=== PATIENT | female | born 1990 | race African-American/Black ===

== ENCOUNTER 2024-07-14 06:52 | Inpatient (IN) | payer MEDICAID ==
[2024-07-12 11:07] LABS: Basophils # (auto) 0 10 ^3/uL (0-0.2); Eosinophils # (auto) 0 10 ^3/uL (0-0.8); Eosinophils % (auto) 0.4 % (0.0-7.0)
[2024-07-12 11:09] LABS: Albumin 4.1 g/dL (3.2-4.8); Anion Gap 10 (5-15); Basophils % (auto) 0.4 % (0.0-2.0); Bilirubin, Total 0.3 mg/dL (0.2-1.0); Calcium 9.5 mg/dL (8.7-10.4); Carbon Dioxide 23 mmol/L (20-31); Chloride 106 mmol/L (98-107); Glucose 82 mg/dL (74-106); Hematocrit 31.9 % (36.0-46.0); Hemoglobin 10.2 g/dL (12.2-16.2); Lymphocytes % (auto) 10.1 % (10.0-50.0); Mean Corpuscular Hemoglobin 23.9 pg (28.0-32.0); Mean Corpuscular Hgb Conc. 31.9 g/dL (32.0-36.0); Mean Corpuscular Volume 74.8 fL (80.0-100.0); Monocytes # (auto) 0.7 10 ^3/uL (0-1.3); Monocytes % (auto) 6.9 % (0.0-12.0); Neutrophils # (auto) 7.7 10 ^3/uL (1.6-8.6); Neutrophils % (auto) 82.2 % (37.0-80.0); Platelet Count (auto) 277 10^3/uL (140-450); Potassium 4.1 mmol/L (3.5-5.1); Red Blood Cells 4.26 10^6/uL (4.0-5.20); Red Cell Distribution Width 17.7 % (11.8-14.3); Sodium 139 mmol/L (136-145); Total Protein 7.2 g/dL (5.7-8.2); White Blood Cell 9.4 10^3/uL (4.4-10.8)
[2024-07-12 11:11] LABS: Alanine Aminotransferase 9 U/L (7-40); Alkaline Phosphatase 177 U/L (46-116); Aspartate Aminotransferase 11 U/L (13-40); BUN/Creatinine Ratio 8.3 (10.0-20.0); Blood Urea Nitrogen < 5 mg/dL (9-23)
[2024-07-12 11:18] LABS: Cannabinoid Screen, Urine Pos (NEGATIVE)
[2024-07-12 11:26] LABS: Amphetamine Screen, Urine Neg (NEGATIVE); Barbiturate Scree,Urine Neg (NEGATIVE); Benzodiazephine Screen, Urine Neg (NEGATIVE); Cocaine Screen, Urine Neg (NEGATIVE); Opiate Scree,Urine Neg (NEGATIVE); Phencyclidine Screen, Urine Neg (NEGATIVE)
[2024-07-12 11:29] LABS: INR 0.96 (0.9-1.15); Prothrombin Time 10.2 sec (9.3-11.8)
[2024-07-14] VITALS (8 sets, daily range): BP systolic 97–116; BP diastolic 61–77; PULSE 94–114; RESP 20; TEMP 97.7; O2SAT 95–100
[~2024-07-14] VITALS: Ht 167.6 cm; Wt 86.2 kg
[2024-07-14] MEDS: ceFAZolin 1GM/50ML 50 ML IV ONE (07:00)
[2024-07-14 07:53] LABS: Basophils # (auto) 0 10 ^3/uL (0-0.2); Basophils % (auto) 0.4 % (0.0-2.0); Eosinophils # (auto) 0 10 ^3/uL (0-0.8); Eosinophils % (auto) 0.3 % (0.0-7.0); Hematocrit 31.7 % (36.0-46.0); Hemoglobin 10.1 g/dL (12.2-16.2); Lymphocytes # (auto) 1.4 10 ^3/uL (0.4-5.4); Lymphocytes % (auto) 14.6 % (10.0-50.0); Mean Corpuscular Hemoglobin 23.9 pg (28.0-32.0); Mean Corpuscular Volume 74.5 fL (80.0-100.0); Monocytes # (auto) 0.6 10 ^3/uL (0-1.3); Monocytes % (auto) 6.3 % (0.0-12.0); Neutrophils # (auto) 7.4 10 ^3/uL (1.6-8.6); Neutrophils % (auto) 78.4 % (37.0-80.0); Nucleated Red Blood Cells % 0.2 %; Platelet Count (auto) 266 10^3/uL (140-450); Red Blood Cells 4.25 10^6/uL (4.0-5.20); Red Cell Distribution Width 17.5 % (11.8-14.3); White Blood Cell 9.4 10^3/uL (4.4-10.8)
[2024-07-14 07:56] LABS: Albumin 4.2 g/dL (3.2-4.8); Anion Gap 11 (5-15); BUN/Creatinine Ratio 9.4 (10.0-20.0); Calcium 9.6 mg/dL (8.7-10.4); Carbon Dioxide 23 mmol/L (20-31); Chloride 104 mmol/L (98-107); Glucose 84 mg/dL (74-106); Potassium 3.6 mmol/L (3.5-5.1); Sodium 138 mmol/L (136-145); Total Protein 7.3 g/dL (5.7-8.2)
[2024-07-14 07:57] LABS: Bilirubin, Total 0.3 mg/dL (0.2-1.0)
[2024-07-14 08:00] LABS: Alanine Aminotransferase < 9 U/L (7-40); Alkaline Phosphatase 183 U/L (46-116); Aspartate Aminotransferase 12 U/L (13-40); Blood Urea Nitrogen 6 mg/dL (9-23)
[2024-07-14 08:01] LABS: INR 0.95 (0.9-1.15); Partial Thromboplastin Time 29.2 SEC (24.5-34.5); Prothrombin Time 10.1 sec (9.3-11.8)
--- NOTE | 2024-07-14 08:02 | DVHPN2 ---
Visit Coding OBGYN Date of Service: Jul 14, 2024 Billing Provider: EDER SOLARES DO SOLUTIONS ENGINEER Common Visit Codes: [id number] INP/OBS CARE (HIGH) EDER SOLARES DO Jul 14, 2024 08:02
--- NOTE | 2024-07-14 08:15 | DVHHP ---
ADMIT DATE: 07/14/2024 CHIEF COMPLAINT: Uterine contractions HISTORY OF PRESENT ILLNESS: This is a 33-year-old -Filipino female. She is a 5, para 1. She has had 3 prior miscarriages. Her estimated due date is 07/22/2024 based on a 17 week ultrasound. Current gestational age of 38.6 weeks. The patient has had good care since the second trimester. She has a history of previous section, desires repeat without a trial of labor. Her is significant for mild anemia and marijuana use during . She presented with early labor symptoms and irregular contractions. Denies rupture of membranes or bleeding. PAST MEDICAL HISTORY: Anemia. PAST SURGICAL HISTORY: x1. MEDICATIONS: vitamins and iron sulfate. ALLERGIES: No known drug allergies. SOCIAL HISTORY: Denies any tobacco, or alcohol use. Endorses THC use FAMILY HISTORY: Negative and noncontributory. REVIEW OF SYSTEMS: A 14-point review of systems is negative as otherwise stated in the HPI. PHYSICAL EXAMINATION: VITAL SIGNS: Stable. GENERAL: Alert, in no acute distress, pleasant. HEENT: Normocephalic, atraumatic. EOMI. NECK: Supple, with no palpable thyromegaly. ABDOMEN: Gravid, soft, nontender. CARDIOVASCULAR: Regular rate and rhythm. PULMONARY: Clear to auscultation bilaterally. EXTREMITIES: Without cyanosis, deformity or edema. PELVIC: Shows normal external female genitalia. Cervical exam 2cm dilated. heart rate baseline is 130 bpm with moderate variability, no decelerations, category 1. OTHER FINDINGS: The patient's blood type is AB positive, rubella immune, HIV negative, hepatitis B negative, RPR negative. ASSESSMENT: * Term intrauterine at 38.6 weeks,early labor * Previous section, desires repeat. PLAN: The patient will be admitted for repeat section without a trial of labor. She has been consented for surgery and anesthesia and possible blood transfusion. The risks, benefits and alternatives to surgery have been discussed. Risks of scar, pain, bleeding, infection, injury to bowel, bladder, adjacent organs, all reviewed with the patient. Patient desires to proceed as planned. DO HARIS Richardson TID: [id number] RECEIPT: [id number] MTDD
[2024-07-14 08:37] LABS: Urine Bacteria FEW /hpf (None Seen); Urine Blood Negative /uL (Negative); Urine Clarity Turbid (Clear); Urine Color Yellow (Yellow); Urine Mucus FEW (None Seen); Urine Protein, UAD TRACE (Negative); Urine Specific Gravity 1.024 (1.001-1.035); Urine Squamous Epithelial Cell MOD /hpf (<5); Urine Urobilinogen Normal (Negative); Urine WBC 3 /HPF (0-5)
[2024-07-14 08:38] LABS: Cannabinoid Screen, Urine Pos (NEGATIVE)
[2024-07-14 08:39] LABS: Amphetamine Screen, Urine Neg (NEGATIVE); Barbiturate Scree,Urine Neg (NEGATIVE); Benzodiazephine Screen, Urine Neg (NEGATIVE); Cocaine Screen, Urine Neg (NEGATIVE); Opiate Scree,Urine Neg (NEGATIVE); Phencyclidine Screen, Urine Neg (NEGATIVE)
[2024-07-14] MEDS: LACTATED RINGER'S 1,000 ML IV SCH (10:19)
[2024-07-14] MEDS: LACTATED RINGER'S 1,000 ML IV ONE (10:19)
[2024-07-14] MEDS: ceFAZolin 2 GM/D5W50ml 50 ML IV ONE (12:14)
[2024-07-14] MEDS ORDERED: MIDAZOLAM HCL 2MG/2ML 2ml VIAL (1mg/ml) ONE (13:08)
[2024-07-14] MEDS ORDERED: MORPHINE SULF PF 5 MG/10 ML VIAL ONE (13:08)
[2024-07-14] MEDS ORDERED: fentaNYL CITRATE 100 MCG/2 ML VL ONE (13:08)
[2024-07-14] MEDS: TETRACAINE 1% INJ 2 ML VIAL IJ ONE (13:10)
[2024-07-14] MEDS ORDERED: oxyTOCIN 10 UNIT/ML 10ML VIAL ONE (14:23)
--- NOTE | 2024-07-14 14:30 | DVHPN2 ---
Visit Coding OBGYN Date of Service: Jul 14, 2024 Billing Provider: EDER SOLARES DO SENIOR MAINTENANCE MACHINIST Common Visit Codes: PROCEDURE ONLY SENIOR MAINTENANCE MACHINIST Procedure Codes: [id number] OB CARE, DEL EDER SOLARES DO Jul 14, 2024 14:30
[2024-07-14] MEDS ORDERED: DexAMETHasone SOD PHOS 10MG/1ML VIAL INJ IV PRN (14:45)
[2024-07-14] MEDS: LACT. RINGERS/OXYTOCIN 20UNITS 1,000 ML IV ONE (14:45)
[2024-07-14] MEDS ORDERED: ceFAZolin 1GM/50ML 50 ML IV ONE (14:45)
[2024-07-14] MEDS: GUM (CHEWING) 1 GUM CHEW CHEW ONE (14:45)
[2024-07-14] MEDS ORDERED: hydrALAZINE HCL 20 MG/ML VL IV PRN (14:45)
[2024-07-14] MEDS ORDERED: ONDANSETRON HCL 4 MG/2 ML VIAL IV PRN (14:45)
[2024-07-14] MEDS ORDERED: HYDROmorphone HCL 2 MG/ML VL/or syr IV PRN ×2 (14:45)
[2024-07-14] MEDS ORDERED: ePHEDrine SULFATE 50 MG/ML AMP IV PRN (14:45)
[2024-07-14] MEDS ORDERED: MIDAZOLAM HCL 2MG/2ML 2ml VIAL (1mg/ml) IV PRN (14:45)
[2024-07-14] MEDS ORDERED: diphenhdrAMINE HCL 50 MG/1 ML VL IV PRN (14:45)
--- NOTE | 2024-07-14 14:54 | DVHOP ---
DATE OF SURGERY: 07/14/2024 PREOPERATIVE DIAGNOSES: * Term intrauterine , 38 weeks and 6 days. * Previous section, desires repeat. * Early labor. FINAL DIAGNOSES: * Term intrauterine , 38 weeks and 6 days. * Previous section, desires repeat. * Early labor. PROCEDURE PERFORMED: Repeat low transverse section via Pfannenstiel skin incision. SURGEON: Cortez Muro DO. PROJECT CONTROLS SCHEDULER: lab technician. TYPE OF ANESTHESIA: Spinal. ANESTHESIOLOGIST: Horace Arcos MD. DESCRIPTION OF FINDINGS: Delivery of a liveborn male , cephalic presentation, clear amniotic fluid, weight 3020 grams (6 pounds 11 ounces). Normal uterus, normal fallopian tubes, ovaries and placenta. Two-layer uterine closure. TECHNICAL PROCEDURE: After informed consent was obtained, the patient was taken to the operating room where her spinal anesthesia was found to be adequate. She was placed in a supine position with a slight leftward tilt. She was sterilely prepped and draped in the usual sterile fashion. A Pfannenstiel skin incision was made through the prior scar. The incision was carried down sharply to the underlying layer of fascia and peritoneum. Entry into the peritoneal cavity was performed sharply. The peritoneal incision was extended superiorly and inferiorly with good visualization of the bladder and underlying organs. The peritoneal incision was stretched laterally. The Indra O retractor was placed into the incision. The vesicouterine peritoneum was dissected off the lower uterine segment and a bladder flap created digitally. Using a second scalpel, the lower uterine segment was incised in a low transverse fashion and the incision extended laterally. The amniotic fluid membranes were ruptured. The fluid was clear. The baby was then delivered atraumatically. There was a nuchal cord x1. After delivery of the , the nose and mouth were suctioned. The cord was clamped and cut and the infant handed off to waiting pediatric team. Cord blood was obtained. The placenta was then manually removed. The uterus was exteriorized and cleared of all clots and debris using moist laparotomy sponges. The uterine incision was repaired with #1 PDS in continuous running locking fashion. A second layer was used to better approximate and to obtain hemostasis. The uterus was returned to the abdomen. The cul-de-sac and pericolic gutters were cleared of all clots and debris. The abdomen was irrigated with sterile water. Hemostasis was confirmed. All laps and instrumentations were removed from the patient's abdomen. The peritoneum and rectus muscles were approximated in the midline in interrupted fashion using a 2-0 PDS. Next, the rectus fascia was closed with a Stratafix #1 in continuous running fashion with good tissue approximation. The subcutaneous tissue was approximated using 2-0 plain gut and the skin closed in subcuticular fashion using 3-0 Monocryl Stratafix in subcuticular fashion. A thin layer of Dermabond was placed over the incision followed by sterile silk dressing. The patient tolerated the procedure well. Sponge, lap and needle counts were correct x4. INTRAOPERATIVE COMPLICATIONS: None. ESTIMATED BLOOD LOSS: 600 mL. POSTOPERATIVE CONDITION: stable. SPECIMENS: Cord blood and placenta. MEDICATIONS: The patient received 2 grams of Ancef prior to skin incision. DO LAURA Richardson/MARA TID: [id number] RECEIPT: [id number]
[2024-07-14] MEDS: ceFAZolin 1GM/50ML 50 ML IV SCH (20:37)
[2024-07-14] MEDS: DOCUSATE SOD 100 MG CAP PO SCH (22:00)
[2024-07-15] VITALS (17 sets, daily range): BP systolic 102–133; BP diastolic 52–89; PULSE 77–127; RESP 17–18; TEMP 97.6–98.4; O2SAT 96–100
[2024-07-15] MEDS: ACETAMINOPHEN IV 1000 MG/100ML (10MG/ML) IV PRN (03:45)
[2024-07-15 05:21] LABS: Eosinophils # (auto) 0 10 ^3/uL (0-0.8); Eosinophils % (auto) 0.3 % (0.0-7.0); Hematocrit 24.6 % (36.0-46.0); Hemoglobin 8.1 g/dL (12.2-16.2)
[2024-07-15 05:24] LABS: Basophils # (auto) 0 10 ^3/uL (0-0.2); Basophils % (auto) 0.3 % (0.0-2.0); Lymphocytes # (auto) 1.4 10 ^3/uL (0.4-5.4); Lymphocytes % (auto) 12.1 % (10.0-50.0); Mean Corpuscular Hemoglobin 24.5 pg (28.0-32.0); Mean Corpuscular Volume 74.1 fL (80.0-100.0); Monocytes # (auto) 0.8 10 ^3/uL (0-1.3); Monocytes % (auto) 7.2 % (0.0-12.0); Neutrophils # (auto) 9.2 10 ^3/uL (1.6-8.6); Neutrophils % (auto) 80.1 % (37.0-80.0); Platelet Count (auto) 213 10^3/uL (140-450); Red Blood Cells 3.32 10^6/uL (4.0-5.20); White Blood Cell 11.5 10^3/uL (4.4-10.8)
[2024-07-15] MEDS: IBUPROFEN 600 MG TAB PO SCH (05:43)
[2024-07-15] MEDS ORDERED: HYDROcodone-ACET 5/325MG TAB PO PRN (06:00)
--- NOTE | 2024-07-15 06:56 | DVHPN2 ---
Progress Note Date Seen: Jul 15, 2024 Subjective POD#1 s/p R C/S S: Doing well. Lochia mild. Pain controlled. + Flatus vital signs Vital Sign Date Time Temp Pulse Resp B/P (MAP) Pulse Ox O2 Delivery O2 Flow Rate FiO2 07/15/24 05:00 87 100 07/14/24 19:00 Room Air 07/14/24 15:47 0.0 07/14/24 15:20 20 07/14/24 15:20 97.7 105/71 (82) 97.7 Total Intake and Output 07/14/24 07/14/24 07/15/24 15:00 23:00 07:00 Output Total 650 ml 325 ml Balance -650 ml -325 ml medications Current Medications Medications Dose Ordered Sig/Diana Route Start Time Stop Time Status Last Admin Dose Admin Lactated Ringer's 1,000 ml @ 125 mls/hr Q8H IV 07/14/24 07:00 07/14/24 20:37 125 MLS/HR Diphenhydramine HCl 25 mg Q4HP PRN IV 07/14/24 14:45 Ondansetron HCl 4 mg Q4HP PRN IV 07/14/24 14:45 Acetaminophen 1,000 mg [id number] PRN IV 07/14/24 14:45 07/15/24 14:44 07/15/24 03:45 1,000 MG Hydromorphone HCl 1 mg Q4HP PRN IV 07/14/24 14:45 Docusate Sodium 200 mg HS PO 07/14/24 22:00 Dimethicone 80 mg QID PRN PO 07/14/24 14:45 Ibuprofen 600 mg Q6HR PO 07/15/24 06:00 07/15/24 05:43 600 MG Acetaminophen/ Hydrocodone Bitart 1 tab Q4HPRN PRN PO 07/15/24 06:00 Acetaminophen/ Hydrocodone Bitart 2 tab Q4HPRN PRN PO 07/15/24 06:00 Cefazolin Sodium 50 ml @ 100 mls/hr Q8HR IV 07/14/24 20:00 07/15/24 14:00 07/15/24 04:29 100 MLS/HR laboratory and microbiology Laboratory Tests 07/15/24 04:56 07/14/24 07:17 Test 07/14/24 07:17 Range/Units Serum Glucose 84 74-106 mg/dL Objective O: AFVSS Chest: heart and lung sounds normal. Abd soft, non-tender, fundus firm, BS, no rebound or guarding, Incision - dressing and incision clean, dry, intact Ext Neg Homans, Non-tender, edema Lochia - minimal Labs Reviewed Assessment/Plan POD#1 s/p R C/Section doing well Precipitous drop in H/H Plan: Continue supportive care IV Iron Rx Pain control. Plan discussed with: Patient Visit Coding OBGYN Date of Service: Jul 15, 2024 Billing Provider: EDER SOLARES DO BODY MAN Common Visit Codes: [id number] INP/OBS CARE(MOD) EDER SOLARES DO Jul 15, 2024 06:55
[2024-07-15] MEDS: IRON SUCROSE COMPLEX 110 ML IV SCH (07:58)
[2024-07-15] MEDS ORDERED: BISACODYL 10 MG RECT SUPP PR PRN (09:30)
[2024-07-15] MEDS: FERROUS SULFATE 325mg EC TAB PO SCH (11:49)
[2024-07-15] MEDS: SIMETHICONE 80 MG CHEWABLE TABLET PO PRN (11:49)
[2024-07-15] MEDS: IBUPROFEN 800 MG TAB PO PRN (11:49)
[2024-07-15] MEDS: HYDROcodone-ACET 5/325MG TAB PO PRN (18:39)
[2024-07-15] MEDS ORDERED: HYDR-4902 PO (23:55)
[2024-07-15] MEDS ORDERED: FER325T PO (23:55)
[2024-07-15] MEDS ORDERED: CEPH250C PO (23:55)
[2024-07-15] MEDS ORDERED: IBUP-1455 PO (23:55)
[2024-07-15] MEDS ORDERED: DOCU-265 PO (23:55)
--- NOTE | 2024-07-16 00:25 | DVHPN2 ---
Progress Note Date Seen: Jul 16, 2024 Subjective S: bleeding is less, eating food without issues, denies lightheaded/dizziness, pain well controlled with oral medications, no concerns with urinating, passing flatus, no BM yet, ambulating well, bottle feeding only vital signs Vital Sign Date Time Temp Pulse Resp B/P (MAP) Pulse Ox O2 Delivery O2 Flow Rate FiO2 07/15/24 22:45 97.6 112 18 114/65 (81) 97 97.6 07/15/24 18:45 Room Air 07/14/24 15:47 0.0 Total Intake and Output 07/15/24 07/15/24 07/16/24 15:00 23:00 07:00 Output Total 300 ml Balance -300 ml medications Current Medications Medications Dose Ordered Sig/Diana Route Start Time Stop Time Status Last Admin Dose Admin Diphenhydramine HCl 25 mg Q4HP PRN IV 07/14/24 14:45 Cancel Ondansetron HCl 4 mg Q4HP PRN IV 07/14/24 14:45 Hydromorphone HCl 1 mg Q4HP PRN IV 07/14/24 14:45 Cancel Docusate Sodium 200 mg HS PO 07/14/24 22:00 07/15/24 22:36 200 MG Dimethicone 80 mg QID PRN PO 07/14/24 14:45 07/15/24 18:40 80 MG Acetaminophen/ Hydrocodone Bitart 1 tab Q4HPRN PRN PO 07/15/24 06:00 07/15/24 18:39 1 TAB Acetaminophen/ Hydrocodone Bitart 2 tab Q4HPRN PRN PO 07/15/24 06:00 Bisacodyl 10 mg DAILYP PRN MI 07/15/24 09:30 Ibuprofen 800 mg Q8HP PRN PO 07/15/24 09:30 07/15/24 20:35 800 MG Ferrous Sulfate 325 mg DAILY PO 07/15/24 10:00 07/15/24 11:49 325 MG laboratory and microbiology Laboratory Tests 07/15/24 04:56 07/14/24 07:17 Test 07/14/24 07:17 Range/Units Serum Glucose 84 74-106 mg/dL Objective O: VSS Chest: heart sounds normal and lung sounds clear bilaterally Abd: soft, non-tender, fundus at U/firm/midline, active bowel sounds, no rebound or guarding Incision: sylke dressing open to air, clean/dry/intact Ext: Non-tender, No edema, 2+ BLE DTRs Lochia: minimal See lab results Problems(with codes): (1) S/P repeat low transverse (2) Precipitous drop in hematocrit Assessment/Plan A: 33yo now POD#2 s/p repeat Precipitous drop in H/H Rh+ Rubella Immune Bottle feeding Pain control with PO medications Bowel regimen P: D/C home today Pt will go home on PO keflex per Dr. Riddle Rx sent to pharmacy precautions and preeclampsia warning signs reviewed F/U with [facility] office in 1 week Plan discussed with: Patient Visit Coding OBGYN Date of Service: Jul 16, 2024 Billing Provider: ADELIA SALMON CNM DRY HOUSE ATTENDANT Common Visit Codes: [id number] INP/OBS CARE(HIGH) DEBBIE SANDERS MDWF Jul 16, 2024 00:25
--- NOTE | 2024-07-16 00:28 | DVHDS2 ---
Obstetrics Discharge Summary Obstetrics Discharge Summary Date of Admission: Jul 14, 2024 Date of Discharge: Jul 16, 2024 Reason For Admission: Section (Repeat) Procedures: NST Intrapartum Procedures: (LOW TRANSVERSE) Procedures: Antibiotics, Hct/date: (07/15/2024), Hgb/date: (07/15/2024) Operative Complicat: None Discharge Diagnosis: Term -Delivered Discharge Information: Activity (as tolerated, no heavy lifting and nothing in the vagina for 6 weeks), Diet (Routine), Medications (rx sent), Instructions (Routine), Discharge to (Home), Accompanied by (partner), Discarge date (07/16/2024) Visit Coding OBGYN Date of Service: Jul 16, 2024 Billing Provider: ADELIA SALMON CNM BOBBIN CLEANER HAND Common Visit Codes: [id number]/[id number] DISCH DAY <30MIN DEBBIE SANDERS MDWF Jul 16, 2024 00:28
[2024-07-16 02:44] VITALS: BP 101/61; PULSE 108; TEMP 97.8; O2SAT 97
[2024-07-16 07:00] VITALS: BP 111/61; PULSE 104; RESP 16; TEMP 97.7; O2SAT 98
[2024-07-16] MEDS ORDERED: HYDR-4072 PO (07:01)
[2024-07-16 11:00] VITALS: BP 126/90; PULSE 105; RESP 16; TEMP 98; O2SAT 99
== END 2024-07-16 12:51 | disposition home or self-care (01) | DRG 540 ==
LOC: LDRP 06:52
PROVIDERS: ADMIT Obstetrics & Gynecology; ATTEND Obstetrics & Gynecology
PROC: 10D00Z1 Extraction of Products of Conception, Low, Open Approach (ICD-10-PCS; principal; 2024-07-14 13:21)
DX: O34.211 Maternal care for low transverse scar from previous cesarean delivery (principal); R71.0 Precipitous drop in hematocrit; Z37.0 Single live birth; Z3A.38 38 weeks gestation of pregnancy
CPT/HCPCS: 36415; 80053; 80307; 81001; 81002; 85025; 85610; 85730; 86780; 86803; 86850; 86900; 86901; 94760; 94762; 96360; 96361; G0378; J0131; J1756; J2250; J2590